=== PATIENT | male | born 1955 | race Caucasian/White ===

== ENCOUNTER 2023-03-28 18:33 | Emergency (ER) | payer BC ==
[2023-03-28 19:33] VITALS: BP 147/84; PULSE 70
[2023-03-28] MEDS ORDERED: Apixaban 5 MG Tab PO ONE (21:16)
== END 2023-03-28 21:20 | disposition home or self-care (01) ==
LOC: JD.ED 18:33
DX: I82.461 Acute embolism and thrombosis of right calf muscular vein (principal); Z88.1 Allergy status to other antibiotic agents; Z79.01 Long term (current) use of anticoagulants; Z87.891 Personal history of nicotine dependence
CPT/HCPCS: 93971; 99283; A9270